=== PATIENT | female | born 1990 ===

== ENCOUNTER 2018-01-02 19:52 | Emergency (ER) | payer SELFPAY ==
[~2018-01-02] VITALS: Ht 149.9 cm; Wt 62.6 kg
== END 2018-01-02 21:42 | disposition home or self-care (01) ==
LOC: ER 19:52
DX: S40.812A Abrasion of left upper arm, initial encounter (principal); S40.811A Abrasion of right upper arm, initial encounter; S80.812A Abrasion, left lower leg, initial encounter; S80.811A Abrasion, right lower leg, initial encounter; T14.8XXA Other injury of unspecified body region, initial encounter; V19.9XXA Pedal cyclist (driver) (passenger) injured in unspecified traffic accident, initial encounter
CPT/HCPCS: 73030; 73140; 99283-25